=== PATIENT | male | born 1960 | race Caucasian/White ===

== ENCOUNTER 2017-05-06 06:44 | Day surgery (SDC) | payer OTHER ==
[2017-05-06] MEDS ORDERED: GLYCOPYRROLATE INJ 0.4 MG/2 ML VIAL ONE (07:10)
[2017-05-06] MEDS ORDERED: ONDANSETRON HCL INJ/PF 4 MG/2 ML SDV ONE (07:10)
[2017-05-06] MEDS ORDERED: NALOXONE HCL INJ/PF 0.4 MG/1 ML SDV ONE (07:10)
[2017-05-06] MEDS ORDERED: EPINEPHRINE INJ 1 MG/10 ML DISP.SYRIN ONE (07:11)
[2017-05-06] MEDS ORDERED: FENTANYL CITRATE INJ/PF 100 MCG/2 ML AMPUL ONE (07:11)
[2017-05-06] MEDS ORDERED: FLUMAZENIL INJ 0.5 MG/5 ML VIAL ONE (07:11)
[2017-05-06] MEDS ORDERED: GLUCAGON,HUMAN RECOMB 1 MG INJ ONE (07:11)
[2017-05-06] MEDS: MIDAZOLAM 2 MG/2 ML INJ ONE ×3 (07:36→07:53)
--- NOTE | 2017-05-06 08:32 | PDOC DISCHARGE SUMMARY ---
Discharge Summary (SDC) - Discharge Final Diagnosis: 1. Diverticuloses 2. Rectal polyp 3. Ascending and Transverse colon lesions Date of Surgery: 05/06/17 Discharge Date: 05/06/17 Condition: Good Treatment or Instructions: [address] [address] POST ENDOSCOPY DISCHARGE INSTRUCTIONS 1. Diet: Start clear liquids that a regular diet as tolerated. 2. Resume all preoperative medications. All oral anticoagulants and aspirins can be resumed 24 hours after procedure. 3. If a polypectomy was performed some bleeding per rectum may occur. This should stop within 3 days. If not, please contact the office. 4. If you had a colonoscopy you may experience some bloating and delayed return of normal bowel function for several days, your regular bowel movement pattern should resume within a week. 5. Please contact [facility] at to make an appointment with Dr. Leonard for 1 to 3 weeks following procedure. 6. If you have any questions or concerns regarding your care,treatment plan or follow up, please contact our office. 7. Per clinical guidelines we recommend you undergo a repeat colonoscopy in 3 years. Referrals: JOSÉ GONZALEZ MD [Primary Care Provider] - Discharge Diet: As Tolerated Discharge Activity: Activity As Tolerated Home Care Assistance: None Needed Report the Following to Your Physician Immediately: Shortness of Breath, Increase in Pain, Fever over 101 Degrees
--- NOTE | 2017-05-06 09:13 | OPERATIVE REPORT E ---
Operative Report NAME: VALERIY VIEYRA : 1960 AGE: 56Y DATE OF SURGERY: 05/06/2017 ROOM: PREOPERATIVE DIAGNOSIS: History of tubular adenoma of the rectum. POSTOPERATIVE DIAGNOSES: 1. Sigmoid diverticuloses. 2. Rectal polyp at approximately 15 cm from the anal verge. 3. Two areas of mucosal abnormality, consistent with sessile lesions of the ascending colon and proximal transverse colon. PROCEDURES: 1. Total colonoscopy to the cecum. 2. Rectal polypectomy. 3. Sequential biopsies of the mucosa, mucosal abnormality of the ascending colon and proximal transverse colon sent in separate containers. SURGEON: MATHEW PIERCE M.D. ANESTHESIA: IV sedation. COMPLICATIONS: None. ESTIMATED BLOOD LOSS: Scant. DRAINS: None. TISSUE REMOVED OR ALTERED: Polyp and mucosal biopsies. SUMMARY OF PROCEDURE: Patient brought from fifth floor endoscopy holding area to the endoscopy suite where conscious sedation was induced. Patient was placed in the left lateral decubitus position. Monitoring devices hooked up. Surgical plan and surgical timeout were conducted. A rectal exam was performed. Sphincter tone was felt to be adequate. There was no palpable or visible anorectal pathology. The posterior surface of the prostate gland was smooth. The flexible pediatric colonoscope was advanced through the anorectal canal all the way to the cecum. This was an excellent study on a very well prepped bowel. Transillumination of the anterior abdominal wall and visualization of cecal anatomy confirmed cecal intubation. Photos taken. The scope was withdrawn the length of the colon checking the mucosa carefully. In the ascending colon, several centimeters distal to the cecum was an area of mucosal abnormality. This was not a discrete mass, but a flat irregularity of the mucosa. Photos were taken. It occupied approximately one half to two thirds of the circumference of the lumen. We removed 2 cold forceps mucosal biopsies and sent them for pathologic analysis. Bleeding was minimal. The scope was further withdrawn into the transverse colon. There was a second area similar to this previously described area, which was also photographed, and biopsied and labeled as a sessile lesion proximal transverse colon. Bleeding was minimal. The scope was brought through the rest of the transverse colon and descending colon. No other pathology seen. There were scattered diverticuloses of the sigmoid colon. In the rectum approximately 15 cm from the anal verge, there was a small sessile polyp less than 4 mm in diameter, which was photographed, and removed using the cold forceps device. This was labeled as rectal polyp and sent to pathology. Scope was retroflexed in the anorectal canal. No other pathology seen. Scope was withdrawn from the patient's anus. He tolerated the procedure well, taken to recovery room in stable condition. Pending pathologic findings, unless diagnosed otherwise, patient will be an appropriate candidate for followup colonoscopy in 3 years. DICTATING PHYSICIAN: MATHEW PIERCE M.D. [id number] Y#: [id number] ID: [id number] JOB#: [id number] ACCT: [id number] cc:MATHEW PIERCE M.D. >
[2017-05-06 09:19] VITALS: BP 131/90
== END 2017-05-06 09:13 | disposition home or self-care (01) ==
LOC: END 06:44
PROVIDERS: ATTEND Surgery
PROC: 0DBL8ZX Excision of Transverse Colon, Via Natural or Artificial Opening Endoscopic, Diagnostic (ICD-10-PCS; 2017-05-06)
PROC: 0DBP8ZX Excision of Rectum, Via Natural or Artificial Opening Endoscopic, Diagnostic (ICD-10-PCS; 2017-05-06)
PROC: 0DBK8ZX Excision of Ascending Colon, Via Natural or Artificial Opening Endoscopic, Diagnostic (ICD-10-PCS; principal; 2017-05-06 07:30)
DX: Z12.11 Encounter for screening for malignant neoplasm of colon (principal); K57.30 Diverticulosis of large intestine without perforation or abscess without bleeding; K62.1 Rectal polyp; K52.9 Noninfective gastroenteritis and colitis, unspecified; K63.9 Disease of intestine, unspecified; E03.9 Hypothyroidism, unspecified; E78.00 Pure hypercholesterolemia, unspecified; I10 Essential (primary) hypertension; Z79.899 Other long term (current) drug therapy
CPT/HCPCS: 45380; 88305 ×2; J2250; J3010; J0171; J1610; J2310; J2405; J3490